=== PATIENT | female | born 1960 | race Hispanic/Latino ===

== ENCOUNTER → 2021-03-18 | Day surgery (SDC) | payer SELFPAY ==
[2021-03-17 10:14] LABS: ANION GAP 11.1 mmol/L (8-16); CALCIUM 9.8 mg/dL (8.4-10.2); CREATININE, SERUM 0.89 mg/dL (0.57-1.11); POTASSIUM 3.1 mmol/L (3.5-5.1)
[~2021-03-18] MED LIST: ATORVASTATIN CA20 MG PO; BUSPIRONE HCL10 MG PO; DETROL LA4 MG PO; HYDROCHLOROTHIA25 MG PO; LEVOTHYROXINE75 MCG PO; LOSARTAN POTASS25 MG PO; MOXIFLOXACIN HCL(OPTH) 3 ML BTL ONE; OR PHACO EYE KIT ONE; PHENYLEPHRINE HCL 10% 5 ML OPTH SOLN ONE; PREOP PHACO EYE KIT ONE; TROPICAMIDE 1% OPTH SOLN 3ML ONE; WELLBUTRIN SR150 MG PO; XANAX0.5 MG PO
[2021-03-18 13:08] VITALS: BP 135/82
== END | disposition home or self-care (01) ==
LOC: OR 10:40
PROVIDERS: ATTEND Ophthalmology
DX: H52.01 Hypermetropia, right eye (principal); H52.4 Presbyopia; I10 Essential (primary) hypertension; E78.5 Hyperlipidemia, unspecified; E03.9 Hypothyroidism, unspecified; H91.90 Unspecified hearing loss, unspecified ear; F32.A Depression, unspecified; Z88.0 Allergy status to penicillin; Z01.810 Encounter for preprocedural cardiovascular examination; Z01.812 Encounter for preprocedural laboratory examination; Z20.822 Contact with and (suspected) exposure to COVID-19; Z79.899 Other long term (current) drug therapy
CPT/HCPCS: 36415; 66984; 80048; U0002

== ENCOUNTER → 2021-04-01 | Day surgery (SDC) | payer SELFPAY ==
[~2021-04-01] MED LIST changes: +FENTANYL CITRATE/PF 100MCG/2 ML INJ ONE; +MIDAZOLAM HCL 2 MG/2 ML VIAL ONE
[2021-04-01 11:25] VITALS: BP 122/79
== END | disposition home or self-care (01) ==
LOC: OR 08:00
PROVIDERS: ATTEND Ophthalmology
DX: H52.02 Hypermetropia, left eye (principal); H52.12 Myopia, left eye; H52.202 Unspecified astigmatism, left eye; E03.9 Hypothyroidism, unspecified; I10 Essential (primary) hypertension; E78.5 Hyperlipidemia, unspecified; H91.90 Unspecified hearing loss, unspecified ear; Z88.0 Allergy status to penicillin; Z01.812 Encounter for preprocedural laboratory examination; Z20.822 Contact with and (suspected) exposure to COVID-19; Z79.899 Other long term (current) drug therapy
CPT/HCPCS: 66984; J2250; J3010; U0002; V2788